=== PATIENT | female | born 1975 | race American Indian/Alaskan Native ===

== ENCOUNTER 2017-12-14 08:25 | Emergency (ER) | payer OTHER ==
[2017-12-14 08:34] VITALS: BP 137/90
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
[2017-12-14] MEDS ORDERED: MOTRIN PO ONE (12:28)
== END 2017-12-14 13:12 | disposition home or self-care (01) ==
LOC: ED 08:25
DX: S16.1XXA Strain of muscle, fascia and tendon at neck level, initial encounter (principal); S39.012A Strain of muscle, fascia and tendon of lower back, initial encounter; M25.561 Pain in right knee; V49.9XXA Car occupant (driver) (passenger) injured in unspecified traffic accident, initial encounter; Y93.89 Activity, other specified; Y99.8 Other external cause status; Y92.410 Unspecified street and highway as the place of occurrence of the external cause
CPT/HCPCS: 99282